=== PATIENT | female | born 1965 | race Caucasian/White ===

== ENCOUNTER 2019-03-29 14:22 | Inpatient (IN) ==
--- NOTE | 2019-03-29 15:40 | DR.EXTPAIN ---
HPI Time seen Time Seen by Provider: 03/29/19 15:39 PCP Primary Care Physician: radha Complaint/Symptoms Chief Complaint:: pt stated she woke u this morning at 7 and stsrted having weakness and dizziness with a cough. pt stated she has been around people with the flu last week. Source History Provided: Patient Mode of arrival Mode of Arrival: Ambulatory Timing Onset of Chief Complaint: 03/29/19 PMH PMH Past Medical History: Yes Past Medical History: Hypertension Past Medical History Comment: pt dont take any meds Past Surgical History: Yes Surgical History: Abdominal Surgery, Cholecystectomy and TRANSPORTATION [employer] Surgery Family History History of Family Medical Conditions: No Family Medical History: Hypertension Social History Does patient currently use any type of tobacco product: No Have you used tobacco products in the last 12 months: No Type of Tobacco Use: None Does any household member use tobacco: No Alcohol Use: None Do you use any recreational Drugs:: No Lives With: Family Lives Where: Home infectious screening In the last 2 months have you had wt loss of >10#?: NO Have you had fever, night sweats or hemotysis?: No Have you traveled outside the country in the last 6 months?: No Isolation: Standard PE Vital Signs Vitals: Temperature 98.9 F Pulse Rate 64 Respiratory Rate 16 Blood Pressure [Left Arm] 156/99 Blood Pressure 169/108 O2 Sat by Pulse Oximetry 100 ROR Labs Reviewed Result Diagrams: 03/29/19 16:40 03/29/19 16:40 Laboratory: WBC 9.4 X10^3/uL (3.6-10.0) 03/29/19 16:40 RBC 5.34 X10^6/uL (3.5-5.4) 03/29/19 16:40 Hgb 14.6 g/dL (12.0-16.0) 03/29/19 16:40 Hct 44.4 % (36.0-47.0) 03/29/19 16:40 MCV 83.2 fL (80.0-100.0) 03/29/19 16:40 MCH 27.3 pg (27.0-34.0) 03/29/19 16:40 MCHC 32.9 g/dL (33.0-35.0) L 03/29/19 16:40 RDW 15.0 % (11.6-16.5) 03/29/19 16:40 Plt Count 203 X10^3/uL (150.0-450.0) 03/29/19 16:40 MPV 10.1 fL (7.4-11.0) 03/29/19 16:40 Neut % (Auto) 66.4 % (42.0-75.0) 03/29/19 16:40 Lymph % (Auto) 23.1 % (21.0-51.0) 03/29/19 16:40 Archer % (Auto) 8.0 % (0.0-13.0) 03/29/19 16:40 Eos % (Auto) 1.9 % (0.9-2.9) 03/29/19 16:40 Baso % (Auto) 0.6 % (0.2-1.0) 03/29/19 16:40 Neut # (Auto) 6.3 x10^3/uL (2.2-4.8) H 03/29/19 16:40 Lymph # (Auto) 2.2 X10^3/uL (1.3-2.9) 03/29/19 16:40 Archer # (Auto) 0.8 x10^3/uL (0.3-0.8) 03/29/19 16:40 Eos # (Auto) 0.2 x10^3/uL (0.0-0.2) 03/29/19 16:40 Baso # (Auto) 0.1 X10^3/uL (0.0-0.1) 03/29/19 16:40 Absolute Nucleated RBC 0.1 /100WBC 03/29/19 16:40 Sodium 138 mmol/L (136-145) 03/29/19 16:40 Corrected Sodium TNP 03/29/19 16:40 Potassium 3.9 mmol/L (3.5-5.1) 03/29/19 16:40 Chloride 104 mmol/L (98-107) 03/29/19 16:40 Carbon Dioxide 29.7 mmol/L (21-32) 03/29/19 16:40 BUN 11 mg/dL (7-18) 03/29/19 16:40 Creatinine 0.76 mg/dL (0.55-1.02) 03/29/19 16:40 Est GFR (MDRD) Af Amer > 60 (>60) 03/29/19 16:40 Est GFR (MDRD) Non-Af > 60 (>60) 03/29/19 16:40 Glucose 92 mg/dL (65-99) 03/29/19 16:40 Calcium 10.0 mg/dL (8.5-10.1) 03/29/19 16:40 Corrected Calcium TNP 03/29/19 16:40 Total Bilirubin 0.80 mg/dL (0.2-1.0) 03/29/19 16:40 AST 28 Units/L (15-37) 03/29/19 16:40 ALT 32 Units/L (12-78) 03/29/19 16:40 Alkaline Phosphatase 200 Units/L (46-116) H 03/29/19 16:40 Creatine Kinase 64 Units/L (26-192) 03/29/19 16:40 CK-MB (CK-2) < 1.0 ng/mL (0-4.0) 03/29/19 16:40 CK/CKMB % Calc 1.6 % (<4) 03/29/19 16:40 Troponin I < 0.02 ng/mL (0-1.5) 03/29/19 16:40 Total Protein 9.0 g/dL (6.4-8.2) H 03/29/19 16:40 Albumin 3.6 g/dL (3.4-5.0) 03/29/19 16:40 Globulin 5.4 g/dL (2.5-4.5) H 03/29/19 16:40 Albumin/Globulin Ratio 0.7 Ratio (1.1-2.1) L 03/29/19 16:40 Specimen Type Clean catch urine 03/29/19 17:03 Urine Color Yellow (YELLOW) 03/29/19 17:03 Urine Appearance Cloudy (CLEAR) 03/29/19 17:03 Urine pH 5.0 (5.0 - 8.0) 03/29/19 17:03 Ur Specific [place] 1.025 (1.000-1.030) 03/29/19 17:03 Urine Protein 2+ (NEGATIVE) 03/29/19 17:03 Urine Glucose (UA) Negative (NEGATIVE) 03/29/19 17:03 Urine Ketones Negative (NEGATIVE) 03/29/19 17:03 Urine Occult Blood 2+ (NEGATIVE) 03/29/19 17:03 Urine Nitrite Negative (NEGATIVE) 03/29/19 17:03 Urine Bilirubin Negative (NEGATIVE) 03/29/19 17:03 Urine Urobilinogen 1+ (NORMAL) 03/29/19 17:03 Ur Leukocyte Esterase 3+ (NEGATIVE) 03/29/19 17:03 Urine RBC 0-2 /HPF (0-3) 03/29/19 17:03 Urine WBC 3-5 /HPF (0-5) 03/29/19 17:03 Ur Squamous Epith Cells Many /HPF (NEGATIVE) 03/29/19 17:03 Calcium Oxalate Crystal Numerous /HPF (NEGATIVE) 03/29/19 17:03 Urine Bacteria 1+ /HPF (NEGATIVE) 03/29/19 17:03 Ur Culture Indicated? No/not indicated 03/29/19 17:03 Influenza Type A (PCR) Negative (NEGATIVE) 03/29/19 15:52 Influenza Type B (PCR) Negative (NEGATIVE) 03/29/19 15:52 S. pyogenes (TEM-PCR) Not detected (NOT DETECT) 03/29/19 15:52 Opioid Opioid Risk Tool Total: 0 Total Score Risk Category: Low Risk Copyright: Miguelangel CARDOZO predicting aberrant behaviors Instructions Forms: Excuse From Work Patient Portal
[2019-03-29 16:29] LABS: STREP A BY PCR NOT DETECTED (NOT DETECT)
--- NOTE | 2019-03-29 16:46 | CT ---
BRAIN W/O CONHistory: RIGHT FACIAL WEAKNESSTechnique: CT images of the brain were obtained without contrast. Reformatted images in the coronal and sagittal planes also generated for review. Automatic exposure was utilized.Comparison: NoneFindings: There is age-appropriate generalized cerebral atrophy with commensurate ventricular and sulcal enlargement. There are patchy areas of periventricular and subcortical white matter hypoattenuation, which are nonspecific but are likely on the basis of chronic small vessel ischemic disease. Benoit-white differentiation is maintained. No visible acute infarction is identified. If clinical concern for acute ischemia remains high and would make a clinical difference to diagnose stroke now, consider MRI for further evaluation. There is no intracranial hemorrhage, extra-axial collection, hydrocephalus or mass. There is trace fluid within the left maxillary sinus. The remaining visualized paranasal sinuses and mastoid air cells are predominantly clear. Imaged extracranial structures are grossly unremarkable.Impression:No acute intracranial abnormality.Age-appropriate atrophy and chronic microangiopathy.Small fluid within the left maxillary sinus. Correlate clinically for acute sinusitis.Electronically signed by: EVAN MAYBERRY (Mar 29, 2019 16:44:40)
--- NOTE | 2019-03-29 16:47 | RAD ---
CHEST, 1 VIEWHistory: SOBComparison: NoneFindings: Cardiac silhouette is moderately enlarged without congestive failure. No acute alveolar infiltrate or significant effusion is identified. No pneumothorax.Impression: Moderate cardiomegaly without CHF or additional acute chest process.Electronically signed by: EVAN MAYBERRY (Mar 29, 2019 16:45:58)
[2019-03-29 16:48] LABS: BASOPHILS # (AUTO) 0.1 X10^3/uL (0.0-0.1); BASOPHILS % (AUTO) 0.6 % (0.2-1.0); EOSINOPHILS # (AUTO) 0.2 x10^3/uL (0.0-0.2); EOSINOPHILS % (AUTO) 1.9 % (0.9-2.9); HEMATOCRIT 44.4 % (36.0-47.0); HEMOGLOBIN 14.6 g/dL (12.0-16.0); LYMPHOCYTES # (AUTO) 2.2 X10^3/uL (1.3-2.9); LYMPHOCYTES % (AUTO) 23.1 % (21.0-51.0); MEAN CORPUSCULAR HEMOGLOBIN 27.3 pg (27.0-34.0); MEAN CORPUSCULAR HGB CONC 32.9 g/dL (33.0-35.0); MEAN CORPUSCULAR VOLUME 83.2 fL (80.0-100.0); MEAN PLATELET VOLUME 10.1 fL (7.4-11.0); MONOCYTES # (AUTO) 0.8 x10^3/uL (0.3-0.8); NEUTROPHILS # (AUTO) 6.3 x10^3/uL (2.2-4.8); NEUTROPHILS % (AUTO) 66.4 % (42.0-75.0); PLATELET COUNT 203 X10^3/uL (150.0-450.0); RED BLOOD COUNT 5.34 X10^6/uL (3.5-5.4); WHITE BLOOD COUNT 9.4 X10^3/uL (3.6-10.0)
[2019-03-29 17:04] LABS: BLOOD UREA NITROGEN 11 mg/dL (7-18); CARBON DIOXIDE 29.7 mmol/L (21-32); CHLORIDE 104 mmol/L (98-107); CREATININE 0.76 mg/dL (0.55-1.02); SODIUM 138 mmol/L (136-145); TROPONIN I < 0.02 ng/mL (0-1.5); eGFR NON BLACK RACES > 60 (>60)
[2019-03-29 17:09] LABS: ALANINE AMINOTRANSFERASE 32 Units/L (12-78); ALBUMIN 3.6 g/dL (3.4-5.0); ALKALINE PHOSPHATASE 200 Units/L (46-116); ASPARTATE AMINO TRANSFERASE 28 Units/L (15-37); CKMB % 1.6 % (<4); CREATINE KINASE 64 Units/L (26-192); CREATINE KINASE MB < 1.0 ng/mL (0-4.0)
[2019-03-29 17:13] LABS: BILIRUBIN,URINE NEGATIVE (NEGATIVE); BLOOD/HEMOGLOBIN,URINE 2+ (NEGATIVE); GLUCOSE, URINE NEGATIVE (NEGATIVE); KETONES,URINE NEGATIVE (NEGATIVE); LEUKOCYTE ESTERASE ,URINE 3+ (NEGATIVE); NITRITES,URINE NEGATIVE (NEGATIVE); PROTEIN,URINE 2+ (NEGATIVE); UROBILINOGEN,URINE 1+ (NORMAL)
[2019-03-29 17:14] LABS: APPEARANCE,URINE CLOUDY (CLEAR); COLOR,URINE YELLOW (YELLOW)
[2019-03-29 17:22] LABS: BACTERIA,URINE 1+ /HPF (NEGATIVE); CALCIUM OXALATE CRYSTALS,UR NUMEROUS /HPF (NEGATIVE); RBC,URINE 0-2 /HPF (0-3); SQUAMOUS EPITHELIAL CELL,UR MANY /HPF (NEGATIVE)
[2019-03-29] MEDS ORDERED: METOPROLOL SUCCINATE 100 MG PO SCH (21:00)
[2019-03-29] MEDS ORDERED: LEXAPRO ONE (21:56)
[2019-03-29] MEDS: LEXAPRO PO SCH (21:59)
[2019-03-29 23:21] LABS: CKMB % 1.7 % (<4); CREATINE KINASE 58 Units/L (26-192); CREATINE KINASE MB < 1.0 ng/mL (0-4.0); TROPONIN I < 0.02 ng/mL (0-1.5)
[2019-03-30 03:32] VITALS: BMI 34.7
[2019-03-30 05:15] LABS: BASOPHILS # (AUTO) 0.1 X10^3/uL (0.0-0.1); BASOPHILS % (AUTO) 1.3 % (0.2-1.0); EOSINOPHILS # (AUTO) 0.2 x10^3/uL (0.0-0.2); EOSINOPHILS % (AUTO) 2.7 % (0.9-2.9); HEMATOCRIT 42.4 % (36.0-47.0); LYMPHOCYTES # (AUTO) 2.1 X10^3/uL (1.3-2.9); LYMPHOCYTES % (AUTO) 28.8 % (21.0-51.0); MEAN CORPUSCULAR HEMOGLOBIN 27.5 pg (27.0-34.0); MEAN CORPUSCULAR VOLUME 83.4 fL (80.0-100.0); MEAN PLATELET VOLUME 10.2 fL (7.4-11.0); MONOCYTES # (AUTO) 0.7 x10^3/uL (0.3-0.8); MONOCYTES % (AUTO) 9.2 % (0.0-13.0); NEUTROPHILS # (AUTO) 4.2 x10^3/uL (2.2-4.8); PLATELET COUNT 184 X10^3/uL (150.0-450.0); RED BLOOD COUNT 5.08 X10^6/uL (3.5-5.4); RED CELL DISTRIBUTION WIDTH 14.7 % (11.6-16.5); WHITE BLOOD COUNT 7.3 X10^3/uL (3.6-10.0)
[2019-03-30 05:37] LABS: ALANINE AMINOTRANSFERASE 31 Units/L (12-78); ALBUMIN 3.2 g/dL (3.4-5.0); ALKALINE PHOSPHATASE 181 Units/L (46-116); ASPARTATE AMINO TRANSFERASE 24 Units/L (15-37); BLOOD UREA NITROGEN 9 mg/dL (7-18); CALCIUM 9.4 mg/dL (8.5-10.1); CARBON DIOXIDE 32.9 mmol/L (21-32); CHLORIDE 104 mmol/L (98-107); CKMB % 1.7 % (<4); CREATINE KINASE 58 Units/L (26-192); CREATINE KINASE MB < 1.0 ng/mL (0-4.0); CREATININE 0.83 mg/dL (0.55-1.02); MAGNESIUM 1.7 mg/dL (1.7-2.9); SODIUM 141 mmol/L (136-145); TOTAL PROTEIN 8.3 g/dL (6.4-8.2); TROPONIN I < 0.02 ng/mL (0-1.5); eGFR NON BLACK RACES > 60 (>60)
[2019-03-30] MEDS: ZESTORETIC 10/ 12.5MG PO SCH (08:07)
[2019-03-30] MEDS: LOVENOX INJ 40 MG SYR SC SCH (13:21)
--- NOTE | 2019-03-30 15:09 | MRI ---
HISTORYRT FACIAL WEAKNESS, ATAXIASTUDYBRAIN W/O [id number] multi-sequence MRI of the brain was obtained utilizing [facility] departmental protocol. Sagittal and axial T1 weighted images were obtained. Axial T2 and fla ir weighted images were performed as well. Axial diffusion weighted and ADC trace mapping was perfor med.FINDINGS2.8 x 1.5 centimeter focus of restricted diffusion in the left basal ganglia with associa alexis increased T2 and FLAIR signal. Scattered tiny white matter FLAIR lesions are nonspecific but comp atible with small vessel ischemic change. Segmental increased FLAIR/T2 signal in the superior left ce rebellar hemisphere without restricted diffusion suggests remote infarct. No ventriculomegaly or midl ine shift. Basal cisterns appear patent. Globes intact. Minor fluid in left maxillary sinus. Mastoid air cells aerated. Expected flow voids seen in major intracranial arteries and dural venous sinuses.I MPRESSIONLate acute/subacute left basal ganglia infarct. Nonspecific signal abnormality in left super ior cerebellar hemisphere is probably late subacute or chronic infarct. MRI follow-up suggested.Elect ronically signed by: Abdirahman Boykin (Mar 30, 2019 15:08:28)
--- NOTE | 2019-03-30 15:18 | MRI ---
HISTORYRT FACIAL WEAKNESS, ATAXIASTUDYMRA HEAD W/O CONCOMPARISONBrain MRI same dayTECHNIQUE3-D [id number] imaging of the intracranial circulation was performed.FINDINGSThere is moderate narrowing of the bilateral internal carotid arteries at the level of the carotid siphons. No visible aneurysm. Major branches of posterior circulation appear patent. Bilateral posterior communicating arteries appear patent.IMPRESSIONModerate bilateral distal internal carotid artery stenosis suspected.Electronically signed by: Abdirahman Boykin (Mar 30, 2019 15:17:33)
[2019-03-30] MEDS: PLAVIX PO SCH (18:10)
[2019-03-30] MEDS: ECOTRIN TAB 325 MG PO SCH (18:10)
[2019-03-30] MEDS ORDERED: LEXAPRO ONE (20:09)
[2019-03-30] MEDS ORDERED: TOPROL XL PO ONE (20:09)
[2019-03-30] MEDS: TOPROL XL PO SCH (20:37)
[2019-03-30] MEDS: CRESTOR TAB 10 MG PO SCH (20:37)
[2019-03-30] MEDS: LEXAPRO PO SCH (20:37)
--- NOTE | 2019-03-30 21:13 | DR.H&P ---
H&P - History & Physical for Day of: H&P Date: 03/29/19 - Chief Complaint Chief Complaint: WEAKNESS, DIZZINESS, COUGH, SLURRED SPEECH, RIGHT SIDED FACIAL DROOPING - History of Present Illness History of Present Illness: IS A 54 YEAR OLD PATIENT OF OURS WHO PRESENTED TO THE ER WITH COMPLAINTS OF WEAKNESS, DIZZINESS, COUGH, SLURRED SPEECH, AND RIGHT SIDED FACIAL DROOPING. SYMPTOMS STARTED APPROXIMATELY 8 HOURS PRIOR TO ARRIVAL. ON ARRIVAL, VITALS WERE 98.9-64-16-100%-190/99. LABS WERE OBTAINED. ABNORMAL LAB VALUES INCLUDE THE FOLLOWING: ALK PHOS 200, TOTAL PROTEIN 9.0, GLOBULIN 5.4. CARDIAC ENZYMES ARE WITHIN NORMAL LIMITS. INFLUENZA AND STREP NEGATIVE. A URINALYSIS WAS OBTAINED AND REVEALED: WBC 3-5, RBC 0-2, LEUKOCYTES 3+, BACTERIA 1+. A BRAIN CT WAS OBTAINED AND REVEALED: No acute intracranial abnormality. Age-appropriate atrophy and chronic microangiopathy. Small fluid within the left maxillary sinus. Correlate clinically for acute sinusitis. A CHEST XRAY WAS OBTAINED AND REVEALED: Moderate cardiomegaly without CHF or additional acute chest process. EKG REVEALED: ATRIAL FIBRILLATION WITH HR 62. SHE WAS ADMITTED TO THE HOSPITAL FOR FURTHER EVALUATION AND TREATMENT OF RIGHT SIDED WEAKNESS AND FACIAL DROOPING, SLURRED SPEECH, RULE OUT CVA. WE WILL OBTAIN A BRAIN MRI/MRA TODAY. OTHERWISE, WE WILL FOLLOW UP WITH AM LABS AND CONTINUE TO MONITOR. - Past Medical History Past Medical History: Hypertension - Past Surgical History Surgical History: Cholecystectomy, H[employer] Surgery - Family History Family Medical History: Hypertension - Social History Does patient currently use any type of tobacco product: No Have you used tobacco products in the last 12 months: No Type of Tobacco Use: None Does any household member use tobacco: No Alcohol Use: None Drug Use: None - Medications Home Medications: No Known Drug Allergies Allergy (Verified 03/29/19 14:49) CONTINUE taking the following medications escitalopram oxalate 10 mg PO HS 03/29/19 [History] lisinopril-hydrochlorothiazide 1 tab PO QA 03/29/19 [History] metoprolol succinate 100 mg PO HS 03/29/19 [History] - Review of Systems Constitutional: Weakness Eyes: No Symptoms Reported ENT: No Symptoms Reported Respiratory: No Symptoms Reported Cardiovascular: [place]adedness Gastrointestinal: No Symptoms Reported Genitourinary: No Symptoms Reported Musculoskeletal: No Symptoms Reported Skin: No Symptoms Reported Neurological: See HPI, Weakness, Change in Speech - Physical Exam Vital Signs: Temperature 98.3 F Pulse Rate [Left] 63 Pulse Rate 64 Respiratory Rate 18 Blood Pressure [Right Arm] 144/90 Blood Pressure [Left Arm] 180/86 Blood Pressure 169/108 O2 Sat by Pulse Oximetry 99 Oriented: Normal Eyes: Normal Ear: Normal Nose: Normal Throat: Normal Respiratory: Diminished Throughout Cardiovascular: Normal : Normal Auscultation: Bowel Sounds: Normal Palpation: Normal Tenderness: Normal Skin: Normal Musculoskeletal: Motor Deficit Psychiatric: Normal Mood Description: Calm Affect: Normal Speech Pattern: Slurred - Assessment/Plan (1) Generalized weakness Status: Acute Plan: ADMIT, BRAIN MRI/MRA, CONTINUE TO MONITOR (2) Facial droop Status: Acute (3) Slurred speech Status: Acute - Allergies Allergies/Adverse Reactions: Allergies Allergy/AdvReac Type Severity Reaction Status Date / Time No Known Drug Allergies Allergy Verified 03/29/19 14:49
[2019-03-31 06:45] LABS: BASOPHILS # (AUTO) 0.1 X10^3/uL (0.0-0.1); BASOPHILS % (AUTO) 0.8 % (0.2-1.0); EOSINOPHILS # (AUTO) 0.2 x10^3/uL (0.0-0.2); EOSINOPHILS % (AUTO) 2.2 % (0.9-2.9); HEMATOCRIT 40.8 % (36.0-47.0); HEMOGLOBIN 13.4 g/dL (12.0-16.0); LYMPHOCYTES # (AUTO) 2.1 X10^3/uL (1.3-2.9); LYMPHOCYTES % (AUTO) 29.6 % (21.0-51.0); MEAN CORPUSCULAR HEMOGLOBIN 27.1 pg (27.0-34.0); MEAN CORPUSCULAR HGB CONC 32.8 g/dL (33.0-35.0); MEAN CORPUSCULAR VOLUME 82.8 fL (80.0-100.0); MEAN PLATELET VOLUME 10.5 fL (7.4-11.0); MONOCYTES # (AUTO) 0.7 x10^3/uL (0.3-0.8); MONOCYTES % (AUTO) 9.7 % (0.0-13.0); NEUTROPHILS # (AUTO) 4.1 x10^3/uL (2.2-4.8); NEUTROPHILS % (AUTO) 57.7 % (42.0-75.0); PLATELET COUNT 190 X10^3/uL (150.0-450.0); RED BLOOD COUNT 4.93 X10^6/uL (3.5-5.4)
[2019-03-31 06:50] LABS: ALANINE AMINOTRANSFERASE 40 Units/L (12-78); ALKALINE PHOSPHATASE 177 Units/L (46-116); ASPARTATE AMINO TRANSFERASE 36 Units/L (15-37); BLOOD UREA NITROGEN 10 mg/dL (7-18); CALCIUM 9.4 mg/dL (8.5-10.1); CARBON DIOXIDE 29.4 mmol/L (21-32); CHLORIDE 105 mmol/L (98-107); COR CA(FOR HYPOALB) 10.2 mg/dL (8.5-10.1); CREATININE 0.64 mg/dL (0.55-1.02); SODIUM 140 mmol/L (136-145); eGFR NON BLACK RACES > 60 (>60)
[2019-03-31] MEDS: ZESTORETIC 10/ 12.5MG PO SCH (08:45)
[2019-03-31] MEDS: ECOTRIN TAB 325 MG PO SCH (08:45)
[2019-03-31] MEDS: PLAVIX PO SCH (08:46)
[2019-03-31] MEDS: LOVENOX INJ 40 MG SYR SC SCH (08:46)
[2019-03-31] MEDS: ARTIFICIAL TEARS DROPS AFFEYE SCH ×4 (08:47→20:58)
[2019-03-31] MEDS ORDERED: NS 250 ML IV 250 ML IV ONE (12:42)
[2019-03-31] MEDS: ROCEPHIN VIAL 1 GRAM 1 G in NS 100 ML IV + SPIKE MINIBAG* 100 ML IV SCH (12:52)
[2019-03-31] MEDS ORDERED: TOPROL XL PO ONE (20:13)
[2019-03-31] MEDS ORDERED: LEXAPRO ONE (20:13)
[2019-03-31] MEDS: CRESTOR TAB 10 MG PO SCH (20:58)
[2019-03-31] MEDS: LEXAPRO PO SCH (20:58)
[2019-03-31] MEDS: TOPROL XL PO SCH (20:58)
[2019-04-01 06:35] LABS: BASOPHILS # (AUTO) 0.1 X10^3/uL (0.0-0.1); EOSINOPHILS # (AUTO) 0.1 x10^3/uL (0.0-0.2); EOSINOPHILS % (AUTO) 1.5 % (0.9-2.9); HEMOGLOBIN 13.6 g/dL (12.0-16.0); LYMPHOCYTES % (AUTO) 26.7 % (21.0-51.0); MEAN CORPUSCULAR HEMOGLOBIN 27.4 pg (27.0-34.0); MEAN CORPUSCULAR HGB CONC 33.3 g/dL (33.0-35.0); MEAN CORPUSCULAR VOLUME 82.2 fL (80.0-100.0); MEAN PLATELET VOLUME 10.2 fL (7.4-11.0); MONOCYTES # (AUTO) 0.8 x10^3/uL (0.3-0.8); MONOCYTES % (AUTO) 10.5 % (0.0-13.0); NEUTROPHILS # (AUTO) 4.6 x10^3/uL (2.2-4.8); NEUTROPHILS % (AUTO) 60.3 % (42.0-75.0); PLATELET COUNT 165 X10^3/uL (150.0-450.0); RED BLOOD COUNT 4.98 X10^6/uL (3.5-5.4); RED CELL DISTRIBUTION WIDTH 14.9 % (11.6-16.5); WHITE BLOOD COUNT 7.6 X10^3/uL (3.6-10.0)
[2019-04-01 07:12] LABS: ALANINE AMINOTRANSFERASE 38 Units/L (12-78); ALBUMIN 3.2 g/dL (3.4-5.0); ALKALINE PHOSPHATASE 180 Units/L (46-116); ASPARTATE AMINO TRANSFERASE 36 Units/L (15-37); BLOOD UREA NITROGEN 12 mg/dL (7-18); CALCIUM 9.8 mg/dL (8.5-10.1); CARBON DIOXIDE 28.6 mmol/L (21-32); CHLORIDE 105 mmol/L (98-107); COR CA(FOR HYPOALB) 10.4 mg/dL (8.5-10.1); SODIUM 140 mmol/L (136-145); TOTAL PROTEIN 8.2 g/dL (6.4-8.2); eGFR NON BLACK RACES > 60 (>60)
[2019-04-01] MEDS: ARTIFICIAL TEARS DROPS AFFEYE SCH ×2 (09:14→13:08)
[2019-04-01] MEDS: LOVENOX INJ 40 MG SYR SC SCH (09:15)
[2019-04-01] MEDS: ROCEPHIN VIAL 1 GRAM 1 G in NS 100 ML IV + SPIKE MINIBAG* 100 ML IV SCH (09:15)
[2019-04-01] MEDS: ECOTRIN TAB 325 MG PO SCH (09:16)
[2019-04-01] MEDS: PLAVIX PO SCH (09:16)
[2019-04-01] MEDS: ZESTORETIC 10/ 12.5MG PO SCH (09:16)
--- NOTE | 2019-04-01 11:02 | PCM.PROG ---
Progress Note - Progress Note for Day of Date of Exam: 03/31/19 - Subjective Subjective: IS BEING TREATED FOR A NEW CVA, RIGHT SIDED FACIAL DROOPING, AND SLURRED SPEECH. TODAY, SHE IS ALERT AND ORIENTED, LYING IN BED ON MORNING ROUNDS. SHE CONTINUES WITH RIGHT SIDED FACIAL DROOPING AND WEAKNESS. SLURRING OF SPEECH HAS SLIGHTLY IMPROVED SINCE YESTERDAY. HER VITALS THIS MO RNING ARE: 98.5-76-20-99%-183/90. LABS WERE OBTAINED. ABNORMAL LAB VALUES INCLUDE THE FOLLOWING: CORRECTED CALCIUM 10.2, ALK PHOS 177, ALBUMIN 3.0, GLOBULIN 5.0. YESTERDAYS BRAIN MRI/MRA REVEALED: Moderate bilateral distal internal carotid artery stenosis suspected. Late acute/subacute left basal g anglia infarct. Nonspecific signal abnormality in left superior cerebellar hemisphere is probably late subacute or chronic infarct. SHE WAS STARTED ON PLAVIX 75MG PO DAILY, ECOTRIN 325MG PO DAILY, AND CRESTOR 20MG PO HS. WE WILL OBTAIN A CAROTID DOPPLER. PHYSICAL THERAPY WILL WORK WITH PATIENT. OTHERWISE, WE PLAN TO FOLLOW UP WITH AM LABS AND CONTINUE TO MONITOR. - Past Medical Family Social History Past Med/Fam/Surg Hx: No changes since H&P Allergies: Allergies No Known Drug Allergies Allergy (Verified 03/29/19 14:49) - Review of Systems ROS: No change since H&P - Vital Signs and I&O's Vital Signs: Temperature 98.0 F Pulse Rate [Left] 51 Pulse Rate 64 Respiratory Rate 18 Blood Pressure [Right Arm] 169/77 Blood Pressure [Left Arm] 180/86 Blood Pressure 169/108 O2 Sat by Pulse Oximetry 98 Intake and Output: Intake & Output 03/29/19 03/30/19 03/31/19 04/01/19 11:59 11:59 11:59 11:59 Intake Total 290 / 290 910 / 910 2380 / 2380 Balance 290 / 290 910 / 910 2380 / 2380 - Physical Exam Oriented: Normal Eyes: Normal Ear: Normal Nose: Normal Throat: Normal Respiratory: Generalized, Diminished Cardiovascular: Normal : Normal Auscultation: Bowel Sounds: Normal Palpation: Normal Tenderness: Normal Skin: Normal Musculoskeletal: Motor Deficit Psychiatric: Normal Mood Description: Calm Affect: Normal Speech Pattern: Slurred - Laboratory and Diagnostics Result Diagrams: 04/01/19 05:42 04/01/19 05:42 Labs: Laboratory WBC 7.6 X10^3/uL (3.6-10.0) 04/01/19 05:42 RBC 4.98 X10^6/uL (3.5-5.4) 04/01/19 05:42 Hgb 13.6 g/dL (12.0-16.0) 04/01/19 05:42 Hct 41.0 % (36.0-47.0) 04/01/19 05:42 MCV 82.2 fL (80.0-100.0) 04/01/19 05:42 MCH 27.4 pg (27.0-34.0) 04/01/19 05:42 MCHC 33.3 g/dL (33.0-35.0) 04/01/19 05:42 RDW 14.9 % (11.6-16.5) 04/01/19 05:42 Plt Count 165 X10^3/uL (150.0-450.0) 04/01/19 05:42 MPV 10.2 fL (7.4-11.0) 04/01/19 05:42 Neut % (Auto) 60.3 % (42.0-75.0) 04/01/19 05:42 Lymph % (Auto) 26.7 % (21.0-51.0) 04/01/19 05:42 [place] % (Auto) 10.5 % (0.0-13.0) 04/01/19 05:42 Eos % (Auto) 1.5 % (0.9-2.9) 04/01/19 05:42 Baso % (Auto) 1.0 % (0.2-1.0) 04/01/19 05:42 Neut # (Auto) 4.6 x10^3/uL (2.2-4.8) 04/01/19 05:42 Lymph # (Auto) 2.0 X10^3/uL (1.3-2.9) 04/01/19 05:42 [place] # (Auto) 0.8 x10^3/uL (0.3-0.8) 04/01/19 05:42 Eos # (Auto) 0.1 x10^3/uL (0.0-0.2) 04/01/19 05:42 Baso # (Auto) 0.1 X10^3/uL (0.0-0.1) 04/01/19 05:42 Absolute Nucleated RBC 0.0 /100WBC 04/01/19 05:42 PT 13.3 SECONDS (11.8-14.3) 03/30/19 04:59 INR Target Range - 03/30/19 04:59 INR 1.05 (0.8-1.3) 03/30/19 04:59 APTT 28.1 SECONDS (22.9-36.5) 03/30/19 04:59 PTT Comment - 03/30/19 04:59 Sodium 140 mmol/L (136-145) 04/01/19 05:42 Corrected Sodium TNP 04/01/19 05:42 Potassium 3.8 mmol/L (3.5-5.1) 04/01/19 05:42 Chloride 105 mmol/L (98-107) 04/01/19 05:42 Carbon Dioxide 28.6 mmol/L (21-32) 04/01/19 05:42 BUN 12 mg/dL (7-18) 04/01/19 05:42 Creatinine 0.70 mg/dL (0.55-1.02) 04/01/19 05:42 Est GFR (MDRD) Af Amer > 60 (>60) 04/01/19 05:42 Est GFR (MDRD) Non-Af > 60 (>60) 04/01/19 05:42 Glucose 76 mg/dL (65-99) 04/01/19 05:42 Calcium 9.8 mg/dL (8.5-10.1) 04/01/19 05:42 Corrected Calcium 10.4 mg/dL (8.5-10.1) H 04/01/19 05:42 Magnesium 1.7 mg/dL (1.7-2.9) 03/30/19 04:59 Total Bilirubin 0.60 mg/dL (0.2-1.0) 04/01/19 05:42 AST 36 Units/L (15-37) 04/01/19 05:42 ALT 38 Units/L (12-78) 04/01/19 05:42 Alkaline Phosphatase 180 Units/L (46-116) H 04/01/19 05:42 Creatine Kinase 58 Units/L (26-192) 03/30/19 04:59 CK-MB (CK-2) < 1.0 ng/mL (0-4.0) 03/30/19 04:59 CK/CKMB % Calc 1.7 % (<4) 03/30/19 04:59 Troponin I < 0.02 ng/mL (0-1.5) 03/30/19 04:59 Total Protein 8.2 g/dL (6.4-8.2) 04/01/19 05:42 Albumin 3.2 g/dL (3.4-5.0) L 04/01/19 05:42 Globulin 5.0 g/dL (2.5-4.5) H 04/01/19 05:42 Albumin/Globulin Ratio 0.6 Ratio (1.1-2.1) L 04/01/19 05:42 Specimen Type Clean catch urine 03/29/19 17:03 Urine Color Yellow (YELLOW) 03/29/19 17:03 Urine Appearance Cloudy (CLEAR) 03/29/19 17:03 Urine pH 5.0 (5.0 - 8.0) 03/29/19 17:03 Ur Specific [place] 1.025 (1.000-1.030) 03/29/19 17:03 Urine Protein 2+ (NEGATIVE) 03/29/19 17:03 Urine Glucose (UA) Negative (NEGATIVE) 03/29/19 17:03 Urine Ketones Negative (NEGATIVE) 03/29/19 17:03 Urine Occult Blood 2+ (NEGATIVE) 03/29/19 17:03 Urine Nitrite Negative (NEGATIVE) 03/29/19 17:03 Urine Bilirubin Negative (NEGATIVE) 03/29/19 17:03 Urine Urobilinogen 1+ (NORMAL) 03/29/19 17:03 Ur Leukocyte Esterase 3+ (NEGATIVE) 03/29/19 17:03 Urine RBC 0-2 /HPF (0-3) 03/29/19 17:03 Urine WBC 3-5 /HPF (0-5) 03/29/19 17:03 Ur Squamous Epith Cells Many /HPF (NEGATIVE) 03/29/19 17:03 Calcium Oxalate Crystal Numerous /HPF (NEGATIVE) 03/29/19 17:03 Urine Bacteria 1+ /HPF (NEGATIVE) 03/29/19 17:03 Ur Culture Indicated? No/not indicated 03/29/19 17:03 Influenza Type A (PCR) Negative (NEGATIVE) 03/29/19 15:52 Influenza Type B (PCR) Negative (NEGATIVE) 03/29/19 15:52 S. pyogenes (TEM-PCR) Not detected (NOT DETECT) 03/29/19 15:52 - Plan (1) CVA (cerebral vascular accident) Status: Acute Qualifiers: CVA mechanism: stenosis Precerebral and cerebral artery: carotid artery Laterality of affected vessel: bilateral Qualified Code(s): I63.233 - Cerebral infarction due to unspecified occlusion or stenosis of bilateral carotid arteries Plan: PLAVIX 75MG PO DAILY, CRESTOR 20MG PO DAILY, ECOTRIN 325MG PO DAILY, CONTINUE TO MONITOR, OBTAIN CAROTID DOPPLER (2) Generalized weakness Status: Acute Plan: CONTINUE TO MONITOR (3) Facial droop Status: Acute (4) Slurred speech Status: Acute
[2019-04-01] MEDS ORDERED: ROBITUSSIN DM PO PRN (11:47)
[2019-04-01 13:59] VITALS: BP 138/89
--- NOTE | 2019-04-01 14:37 | VAS ---
HISTORYRT FACIAL DROOPING, SLURRED SPEECH. Concern for carotid artery stenosis.EXAM: BILATERAL DOPPLER CAROTID ULTRASOUND EXAMTechnique: Multiple santillan scale and color flow Doppler images of the right and left carotid arterial system were obtained. The vertebral arterial system was evaluated as well.Findings:Nonocclusive color flow Doppler is seen throughout the right and left carotid arterial system. No hemodynamically significant carotid arterial stenosis is seen based on velocity criteria. There is [mild] atherosclerosis and [scattered] plaque formation of the bilateral carotid bulbs and ICAs with associated intimal thickening but [without] evidence for high-grade stenosis (>70%) or occlusion of the carotid arteries.The right and left vertebral artery demonstrate antegrade flow.IMPRESSION:[Mild] atherosclerosis and [scattered] plaque formation of the bilateral carotid bulbs and [in both] ICAs with associated carotid intimal thickening but without evidence for high-grade stenosis or occlusion of the carotid arteries, based on Doppler velocity criteria.Appropriate, antegrade, vertebral arterial flow.Peak right ICA velocity: [63] centimeter/seconds.Peak right CCA velocity: [85] centimeter/seconds.Peak left ICA velocity: [82] centimeter/seconds.Peak left CCA velocity: [96] centimeter/seconds.Right ICA to CCA ratio: [1.7].Left ICA to CCA ratio: [2.2].Electronically signed by: LUX COFFEY III (Apr 01, 2019 14:35:40)
== END 2019-04-01 14:00 | disposition home or self-care (01) | DRG 66 ==
LOC: ER 14:47 → MED/SURG 14:47
PROVIDERS: ADMIT Internal Medicine; ATTEND Internal Medicine
DX: R47.81 Slurred speech; R94.31 Abnormal electrocardiogram [ECG] [EKG]; Z79.899 Other long term (current) drug therapy; R29.810 Facial weakness; R53.1 Weakness; I63.233 Cerebral infarction due to unspecified occlusion or stenosis of bilateral carotid arteries
CPT/HCPCS: 36415; 70450; 70544; 70551; 71010; 71045; 80053; 81001; 82550; 82553; 83735; 84484; 85025; 85610; 85730; 87502; 87651; 93005; 93880; 94760; 96365; 97112; 97116; 97162; 97166; 97535; 99284; A4222; G0378; J0696; J1650; J7050